=== PATIENT | female | born 1975 | race Caucasian/White ===

== ENCOUNTER 2017-12-22 00:12 | Emergency (ER) | payer MEDICAID ==
[~2017-12-22] VITALS: Ht 157.5 cm; Wt 108.4 kg
[2017-12-22 00:21] VITALS: Ht 157.5 cm; Wt 108.4 kg
[2017-12-22 01:23] VITALS: BP 167/96
== END 2017-12-22 01:23 | disposition home or self-care (01) ==
LOC: ED 00:12
DX: B02.22 Postherpetic trigeminal neuralgia (principal)